=== PATIENT | male | born 1970 | race Caucasian/White ===

== ENCOUNTER 2016-12-07 08:09 | Observation (INO) | payer BC ==
--- NOTE | ~2016-12-07 | OP ---
Record Of Operation [facility] [address] [place]. [address] NAME: PHIL GRACE : 68 STATUS : ADM Randy PAT#: [id number] AGE: 46 ADM/REG DATE : 12/07/16 MR#: [id number] REPORT SERV DATE: 12/08/16 DICTATED BY: SHARIF SCHAEFFER JR. DATE: 12/07/16 REPORT STATUS : Draft TRANSCRIBED BY: MODAston DATE: 12/07/16 DATE OF PROCEDURE: 12/07/2016 SURGEON: Sharif Schaeffer M.D. MANAGER SUSTAINABILITY: Michael Luong. PROCEDURE: Laparoscopic cholecystectomy. PREOPERATIVE DIAGNOSIS: Acute cholecystitis. POSTOPERATIVE DIAGNOSIS: Acute cholecystitis. ANESTHESIA: General. INDICATIONS: The patient has been admitted with acute pain in the upper abdomen. Imaging including CT and ultrasound shows cholelithiasis with gallbladder wall thickening. He has tenderness in the right upper quadrant consistent with acute cholecystitis and cholecystectomy is indicated. FINDINGS: On laparoscopic examination of the abdomen, there is evidence of inflammation of the gallbladder acutely, it aspirated. The bile from the gallbladder lumen is relatively pale in color. Cultures were taken. The gallbladder did contain a dominant large stone in the infundibulum which appeared to be causing an obstruction. It was removed successfully. No other significant findings were encountered. DESCRIPTION OF PROCEDURE: With adequate general anesthesia, the patient was placed in supine position. The abdomen was prepped and draped sterilely. Marcaine 0.5% was used for local infiltration at all trocar sites. An infraumbilical incision was made. The dissection was carried down sharply through the subcutaneous tissues. The fascia and peritoneum were opened and the peritoneum cavity was entered. A balloon tipped trocar was introduced and the abdomen was insufflated with CO2. The laparoscope was introduced with the above-noted findings. Under direct vision, a 10 mm trocar was placed in the epigastric region and two 5 mm in the subcostal. The gallbladder was identified, grasped, after aspiration of the bile and retracted in a cephalad manner. The cystic duct and artery were doubly clipped and divided. An additional branch was clipped as well of the artery. The gallbladder was then removed from its bed with sharp and blunt dissection. It was then placed in an Endopouch and extracted through the epigastric site. Bleeding within the bed was controlled with electrocautery, Surgicel and Surgiflo. Wound was irrigated thoroughly with saline. There was no evidence of any bleeding or bile leak. Then, all trocars were removed under direct vision. The epigastric and umbilical sites were closed at the fascial layer with figure-of- eight 0 PDS. All wounds were then closed with dermal Monocryl. Sterile dressings were applied. The patient left the operating room in satisfactory condition. ESTIMATED BLOOD LOSS: 30 mL. Record Of Operation [address] [address] NAME: PHIL GRACE : 68 STATUS : ADM Randy PAT#: [id number] AGE: 46 ADM/REG DATE : 12/07/16 MR#: [id number] REPORT SERV DATE: 12/08/16 DICTATED BY: SHARIF SCHAEFFER JR. DATE: 12/07/16 REPORT STATUS : Draft TRANSCRIBED BY: MAGAN DATE: 12/07/16 MARCEL/MAGAN Sharif Schaeffer Jr., M.D. / [id number] CC: Sharif Schaeffer Jr., M.D.
--- NOTE | ~2016-12-07 | HP ---
History And Physical [facility] [address] [place]. [address] NAME: PHIL GRACE : 68 STATUS : ADM Randy PAT#: [id number] AGE: 46 ADM/REG DATE : 12/07/16 MR#: [id number] REPORT SERV DATE: 12/07/16 DICTATED BY: SHARIF VIRGEN JR. DATE: 12/07/16 REPORT STATUS : Draft TRANSCRIBED BY: MAGAN DATE: 12/07/16 DATE OF ADMISSION: 12/07/2016 CHIEF COMPLAINT: Abdominal pain. HISTORY OF PRESENT ILLNESS: This is a 46-year-old white male, who presented to the emergency department with a 3-day history of severe abdominal pain, was unrelenting with some associated nausea on initial presentation. The pain began in the epigastrium and radiated to the back. It again has persisted, associated with constipation. He came to the ER where he had a CT scan which showed abnormal gallbladder and an ultrasound which showed a large gallstone which appeared to be obstructing the cystic duct. White count was elevated. He is admitted with diagnosis of acute cholecystitis. PAST MEDICAL HISTORY: Remarkable for history of coronary artery disease for which he has had triple artery bypass. He has no ongoing heart symptoms. He has had knee surgery. Ulcer disease, headache, and hypertension. MEDICATIONS: Listed and reviewed. ALLERGIES: HE IS ALLERGIC TO PENICILLINS, ERYTHROMYCIN, AND CECLOR. SOCIAL HISTORY: Tobacco and alcohol, none. He does . FAMILY HISTORY: Coronary disease. REVIEW OF SYSTEMS: GENERAL: He has had some fever and fatigue. HEENT: Negative. SKIN: Negative. RESPIRATORY: Negative. CV: No acute symptoms. GI: As above. : No symptoms. MUSCULOSKELETAL: Negative. ENDOCRINE: Negative. HEMATOLOGIC: Negative. IMMUNOLOGIC: Negative. PSYCHIATRIC: Negative. PHYSICAL EXAMINATION: GENERAL: Exam shows a healthy-appearing male, who is in some mild distress. VITAL SIGNS: He is afebrile, temperature is 97.4, blood pressure is 94/63, heart rate , and respirations 18. HEENT: Head and neck exam shows pupils are equal and reactive. There are no icteric changes. Mucous membranes are slightly dry. NECK: The neck is supple. There is no mass or thyromegaly. LUNGS: Clear bilaterally. CARDIOVASCULAR: Exam shows normal S1, S2 without murmur. History And Physical [address] [place]. [address] NAME: PHIL GRACE : 68 STATUS : ADM Randy PAT#: [id number] AGE: 46 ADM/REG DATE : 12/07/16 MR#: [id number] REPORT SERV DATE: 12/07/16 DICTATED BY: SHARIF VIRGEN JR. DATE: 12/07/16 REPORT STATUS : Draft TRANSCRIBED BY: MAGAN DATE: 12/07/16 ABDOMEN: Soft, but tender in the right upper quadrant. There is no mass or hepatosplenomegaly. EXTREMITIES: Show no clubbing, cyanosis, or edema. NEUROLOGIC: He is alert and oriented. No focal findings. Appropriate affect. Studies are reviewed. IMPRESSION: Cholelithiasis with acute cholecystitis. PLAN: We will proceed with admission, give IV fluids, and antibiotics. We will proceed with laparoscopic cholecystectomy in view of the persistence of the pain. Details of laparoscopic cholecystectomy along with increased risk especially with respect to bleeding in view of this would not be indicated to delay the operation. MARCEL/MAGAN Sharif Virgen Jr., M.D. / [id number] CC: Sharif Virgen Jr., M.D.
[2016-12-07 07:31] LABS: BASOPHILS 0.2 %; BASOPHILS ABSOLUTE 0.03 10/3/uL (0.0-0.16); EOSINOPHILS 0.3 %; EOSINOPHILS ABSOLUTE 0.04 10/3/uL (0.0-0.53); ER CBC TAT 0 Hrs 05 Mins; HEMATOCRIT 42.3 % (40.0-51.0); IMMATURE GRANULOCYTES 0.4 %; IMMATURE GRANULOCYTES ABSOLUTE 0.05 10/3/uL (0.0-0.11); LYMPHOCYTES 13.6 %; LYMPHOCYTES ABSOLUTE 1.69 10/3/uL (0.67-4.30); MEAN CORPUS HGB CONC 33.1 g/dL (32.0-36.0); MEAN CORPUSCULAR HEMOGLOB 27.8 pg (26.0-34.0); MEAN CORPUSCULAR VOLUME 84.1 fL (80-100); MEAN PLATELET VOLUME 10.9 fL (9.2-13.0); MONOCYTES 11.5 %; MONOCYTES ABSOLUTE 1.44 10/3/uL (0.21-1.20); NEUTROPHILS ABSOLUTE 9.22 10/3/uL (2.02-8.40); PLATELET COUNT 233 10/3/uL (150-400); RBC DISTRIBUTION WIDTH 13.7 % (12.0-16.0); RED CELL COUNT 5.03 10/6/uL (4.7-6.1); WHITE BLOOD CELLS 12.5 10/3/uL (4.5-10.5)
[2016-12-07 07:35] LABS: MANUAL DIFF NO %
[2016-12-07 07:46] LABS: A/G RATIO 0.9 (0.7-1.9); ALBUMIN 3.9 G/DL (3.5-5.0); ALKALINE PHOSPHATASE 103 U/L (45-117); BUN (BLOOD UREA NITROGEN) 13 MG/DL (6-23); CALCIUM, SERUM 9.3 MG/DL (8.5-10.4); CHLORIDE, SERUM 102 MMOL/L (96-112); CO2 (CARBON DIOXIDE) 27 MMOL/L (24-34); CREATININE 1.41 MG/DL (0.70-1.30); GFR AFRICAN AMERICAN 68 ML/MIN (>=60); GFR NON AFRICAN AMERICAN 59 ML/MIN (>=60); GLOBULIN 4.3 G/DL (2.5-4.1); GLUCOSE, SERUM 105 MG/DL (60-99); POTASSIUM, SERUM 3.7 MMOL/L (3.5-5.3); SGOT(AST) 8 U/L (5-40); SGPT(ALT) 14 U/L (5-65); SODIUM, SERUM 138 MMOL/L (135-148); TOTAL BILIRUBIN 0.7 MG/DL (0-1.2); TOTAL PROTEIN 8.2 G/DL (6.0-8.5)
[2016-12-07 07:52] LABS: ASCORBIC ACID (UR NOT ORDER) NEG (NEG); BILIRUBIN, URINE NEGATIVE (NEG); ER URINALYSIS TAT 0 Hrs 15 Mins; KETONE, URINE NEGATIVE (NEG); LEUKOCYTE ESTERASE(NOT OR NEG (NEG); NITRITE (URINE) NEG (NEG); WBC (NOT ORDERED) (RFLEX) 4 (0-5)
[~2016-12-07 08:09] MED LIST: ASA5GR PO; COREG12 PO; COREG3 PO; DIOV160 PO; EXFORGE HC4 PO; GOODY'S EX-STR1 EAC1 PO; HALF81 PO; HYDROCHLOROT12.5 MG PO; IMDUR30 PO; KDUR20 PO; LIPITOR40 PO; MAGOX4 PO; NORV5 PO; PLAVIX PO; PRAVACHOL40 MG PO; PRIN2.5 PO; PRIN5 PO
[2016-12-07] MEDS ORDERED: PLAVIX PO (09:45)
[2016-12-07] MEDS ORDERED: APRES50 PO (09:45)
[2016-12-07] MEDS ORDERED: COREG6 PO (09:45)
[2016-12-07] MEDS ORDERED: MAGOX4 PO (09:45)
[2016-12-07] MEDS ORDERED: KLOR-CON 1010 MEQ PO (09:46)
[2016-12-07] MEDS ORDERED: LIPITOR40 PO (09:46)
[2016-12-07] MEDS ORDERED: HALF81 PO (09:46)
[2016-12-07] MEDS ORDERED: L20 PO (09:46)
[2016-12-07] MEDS ORDERED: MICARDIS40 PO (09:47)
[2016-12-07] MEDS ORDERED: T PO (09:47)
[2016-12-08 05:16] LABS: BASOPHILS 0.1 %; BASOPHILS ABSOLUTE 0.01 10/3/uL (0.0-0.16); EOSINOPHILS 0 %; HEMOGLOBIN 12.2 g/dL (13.6-17.8); IMMATURE GRANULOCYTES 0.2 %; IMMATURE GRANULOCYTES ABSOLUTE 0.02 10/3/uL (0.0-0.11); LYMPHOCYTES 4.8 %; LYMPHOCYTES ABSOLUTE 0.59 10/3/uL (0.67-4.30); MEAN CORPUS HGB CONC 32.5 g/dL (32.0-36.0); MEAN CORPUSCULAR HEMOGLOB 27.3 pg (26.0-34.0); MEAN CORPUSCULAR VOLUME 83.9 fL (80-100); MEAN PLATELET VOLUME 11.2 fL (9.2-13.0); MONOCYTES 8.8 %; MONOCYTES ABSOLUTE 1.08 10/3/uL (0.21-1.20); NEUTROPHILS 86.1 %; NEUTROPHILS ABSOLUTE 10.58 10/3/uL (2.02-8.40); PLATELET COUNT 212 10/3/uL (150-400); RBC DISTRIBUTION WIDTH 13.5 % (12.0-16.0); RED CELL COUNT 4.47 10/6/uL (4.7-6.1); WHITE BLOOD CELLS 12.3 10/3/uL (4.5-10.5)
[2016-12-08 05:20] LABS: HEMATOCRIT 37.5 % (40.0-51.0); MANUAL DIFF NO %
[2016-12-08 05:26] LABS: BUN (BLOOD UREA NITROGEN) 10 MG/DL (6-23); CALCIUM, SERUM 8.6 MG/DL (8.5-10.4); CHLORIDE, SERUM 106 MMOL/L (96-112); CO2 (CARBON DIOXIDE) 25 MMOL/L (24-34); CREATININE 1.05 MG/DL (0.70-1.30); GFR AFRICAN AMERICAN 98 ML/MIN (>=60); GFR NON AFRICAN AMERICAN 84 ML/MIN (>=60); POTASSIUM, SERUM 4.1 MMOL/L (3.5-5.3); SGOT(AST) 54 U/L (5-40); SGPT(ALT) 48 U/L (5-65); SODIUM, SERUM 139 MMOL/L (135-148); TOTAL BILIRUBIN 0.4 MG/DL (0-1.2)
[2016-12-08 05:49] LABS: A/G RATIO 0.8 (0.7-1.9); ALBUMIN 3.1 G/DL (3.5-5.0); ALKALINE PHOSPHATASE 115 U/L (45-117); GLOBULIN 3.9 G/DL (2.5-4.1); GLUCOSE, SERUM 154 MG/DL (60-99)
[2016-12-08] MEDS ORDERED: LEVAQUIN750 MG PO (09:34)
[2016-12-08] MEDS ORDERED: PCET PO (09:34)
[2016-12-08] MEDS ORDERED: ZOFRAN4 PO (09:34)
== END 2016-12-08 11:25 | disposition home or self-care (01) ==
LOC: ER 08:09 → CDU1 10:58 → SDC/OF 17:12 → PACU 18:39 → 4SO 19:56
PROVIDERS: Emergency Medicine; Specialist
PROC: 0FT44ZZ Resection of Gallbladder, Percutaneous Endoscopic Approach (ICD-10-PCS; principal; 2016-12-07 15:45)
DX: K81.2 Acute cholecystitis with chronic cholecystitis (principal); I25.10 Atherosclerotic heart disease of native coronary artery without angina pectoris; I10 Essential (primary) hypertension; G47.33 Obstructive sleep apnea (adult) (pediatric); K21.9 Gastro-esophageal reflux disease without esophagitis; Z95.1 Presence of aortocoronary bypass graft; Z87.891 Personal history of nicotine dependence; Z88.0 Allergy status to penicillin; Z88.1 Allergy status to other antibiotic agents; Z88.8 Allergy status to other drugs, medicaments and biological substances
CPT/HCPCS: 74176; 76705; 80053; 81001; 83690; 83735; 85025; 87015; 87070; 87077; 87102; 87116; 87186; 87205; 88304; 96367; 96374; 96375; 96376; 99285; A9270-GY; G0378; J0330; J0690; J1170; J1956; J2250; J2370; J2405; J2710; J3010; Q9967